=== PATIENT | female | born 1990 ===

== ENCOUNTER 2017-02-16 13:52 | Emergency (ER) | payer BC ==
[2017-02-16 14:03] VITALS: BP 120/71
[2017-02-16] MEDS ORDERED: Rabies Immune Globulin(Human)* 150 UNITS/ML 2 ML VIAL (300 UNITS) ONE (14:33)
[2017-02-16] MEDS ORDERED: Rabies Immune Globulin(HUMAN)* 150 UNIT/ML 10 ML ONE (14:33)
[2017-02-16] MEDS ORDERED: Rabies Immune Globulin(Human)* 150 UNITS/ML 2 ML VIAL (300 UNITS) IM ONE ×2 (14:41→14:46)
[2017-02-16] MEDS ORDERED: Rabies Immune Globulin(HUMAN)* 150 UNIT/ML 10 ML IM ONE (14:46)
[2017-02-16] MEDS ORDERED: Rabies Vaccine, PCEC INJ* 1 ml IM ONE (14:48)
--- NOTE | 2017-02-16 15:02 | UC ---
Bite Injury/Animal HPI - HPI Summary HPI Summary: here dog attacked and killed a rabid racoon, she may have gotten some of the racoon saliva/blood in to wound on her right hand when cleaning up the dog yesterday - History of Current Complaint Chief Complaint: UCBiteInjury Stated Complaint: RABIES VISIT Time Seen by Provider: 02/16/17 14:29 Hx Obtained From: Patient Hx Last Menstrual Period: 01/15/17 ?: No Severity Currently: None Pain Intensity: 0 Pain Scale Used: 0-10 Numeric Onset/Duration: Sudden Onset Type of Bite: Wild Animal - potential blood and saliva exposure Has Animal Been Immunized?: N/A Character: Abrasion/Laceration Aggravating Factor(s): Nothing Alleviating Factor(s): Nothing Associated Signs And Symptoms: Positive: Negative Hx of Bite: Unprovoked Animal Available for Observation: No Animal Control Notified: Yes - Allergies/Home Medications Allergies/Adverse Reactions: Allergies Allergy/AdvReac Type Severity Reaction Status Date / Time Carbamazepine [From Tegretol] Allergy Hives Verified 02/16/17 14:04 Diphenhydramine Allergy Hives Verified 02/16/17 14:04 [From Benadryl] Home Medications: Home Medications Ibuprofen [Ibuprofen 200 MG] 800 mg PO BID PRN 02/16/17 [History Confirmed 02/16] oxyCODONE TAB* [Roxycodone TAB 5 mg*] 30 mg PO QID 02/16/17 [History Confirmed 02/16/17] PMH/Surg Hx/FS Hx/Imm Hx Previously Healthy: Yes - Surgical History Surgical History: Yes Surgery Procedure, Year, and Place: T&A, [place], Gum Surgery - Family History Known Family History: Positive: None Family History: no reported cardiovascular issues in family lineage - Social History Occupation: Employed Full-time Lives: With Family Alcohol Use: Rare Substance Use Type: Marijuana Smoking Status (MU): Current Every Day Smoker Cessation Counseling: Patient Advised to Stop Review of Systems Constitutional: Negative Skin: Other - on right hand 3rd finger pip ---she has a soft scabbed skin avulsion, and an abrasion on thumb Eyes: Negative ENT: Negative Respiratory: Negative Cardiovascular: Negative Gastrointestinal: Negative Genitourinary: Negative Motor: Negative Neurovascular: Negative Musculoskeletal: Negative Neurological: Negative Psychological: Negative All Other Systems Reviewed And Are Negative: Yes Physical Exam Triage Information Reviewed: Yes Appearance: Well-Appearing, No Pain Distress, Well-Nourished Vital Signs: Initial Vital Signs Temp 99.2 F 02/16/17 14:01 Pulse 66 02/16/17 14:01 Resp 16 02/16/17 14:01 BP 120/71 02/16/17 14:01 Pulse Ox 100 02/16/17 14:01 Vital Signs Reviewed: Yes Eye Exam: Normal Eyes: Positive: Conjunctiva Clear ENT Exam: Normal ENT: Positive: Normal ENT inspection, Hearing grossly normal. Negative: Muffled /hoarse voice Dental Exam: Normal Neck exam: Normal Neck: Positive: Supple, Nontender Respiratory Exam: Normal Respiratory: Positive: Chest non-tender, Lungs clear, Normal breath sounds, No respiratory distress, No accessory muscle use Cardiovascular Exam: Normal Cardiovascular: Positive: RRR, No Murmur, Pulses Normal, Brisk Capillary Refill Musculoskeletal Exam: Normal Musculoskeletal: Positive: Strength Intact, ROM Intact, No Edema Neurological Exam: Normal Neurological: Positive: Alert, Muscle Tone Normal Psychological Exam: Normal Skin Exam: Other Skin: Positive: Other - as described Re-Evaluation - Re-Evaluation First Eval Change: Unchanged - areas on right hand as described inflitrated with RIG--- remainder given by RN as well as first Vaccine Bite Injury Course/Dx - Course Course Of Treatment: Follow with health department for remainder of vaccine, soap and water wash for wounds - Differential Dx/Diagnosis Differential Diagnosis/HQI/PQRI: Laceration, Puncture, Rabies Exposure Provider Diagnoses: Rabies Exposure- Discharge - Discharge Plan Condition: Stable Disposition: HOME Patient Education Materials: Rabies Vaccine (By injection), Rabies Immune Globulin (By injection) Referrals: [facility] [Outside] - If Needed Additional Instructions: Follow with [facility] as planned for remainder of the vaccine
== END 2017-02-16 16:20 | disposition home or self-care (01) ==
LOC: UCEAST 13:52
DX: Z20.3 Contact with and (suspected) exposure to rabies (principal); W55.59XA Other contact with raccoon, initial encounter; Y93.89 Activity, other specified; Y92.9 Unspecified place or not applicable; Y99.9 Unspecified external cause status
CPT/HCPCS: 90375; 90471; 90675; 96372; 99211; G0463

== ENCOUNTER 2019-09-16 06:17 | Day surgery (SDC) | payer OTHER ==
[~2019-09-16 06:17] MED LIST: Buffered Lidocaine 1% SYRIN* 1 ML/SYRINGE INTRADERM ONE; Lactated Ringers 1000 ML Bag* 1,000 ML IV SCH
[2019-09-16] MEDS ORDERED: ceFAZolin 2 GM PREMIX in ORs 2 GM/50 ML BAG ONE (06:21)
[2019-09-16] MEDS ORDERED: Ropivacaine 0.2% * 2 MG/ML VIAL ONE (07:16)
[2019-09-16] MEDS ORDERED: Lidocaine 1% w EPI 1:200,000* SDV 30 ML VIAL ONE (07:17)
[2019-09-16] MEDS ORDERED: Dexamethasone IV* 4 MG/ML 1 ML (4 MG) ONE (07:21)
[2019-09-16] MEDS ORDERED: fentaNYL* 50 MCG/ML 2 ML VIAL (100 MCG VIAL) ONE ×3 (07:21→09:23)
[2019-09-16] MEDS ORDERED: Ketorolac INJ* 30 MG/ML 1 ML VIAL ONE (07:21)
[2019-09-16] MEDS ORDERED: Ondansetron INJ* 2 MG/ML VIAL ONE (07:21)
[2019-09-16] MEDS ORDERED: Propofol* 10 MG/ML 20 ML BTL ONE (07:21)
[2019-09-16] MEDS ORDERED: Midazolam* 1 MG/ML 5 ML VIAL (5 MG) ONE (07:22)
[2019-09-16] MEDS ORDERED: Lidocaine 2% PF * 5 ML VIAL ONE (07:32)
[2019-09-16] MEDS ORDERED: Scopolamine 1.5 mg* PATCH TRANSDERM PRN (08:15)
[2019-09-16] MEDS ORDERED: Ondansetron INJ* 2 MG/ML VIAL IV PRN (08:15)
[2019-09-16] MEDS ORDERED: DiMENhydriNATE IV* 50 MG/ML VIAL IV PUSH PRN (08:15)
[2019-09-16] MEDS ORDERED: fentaNYL* 50 MCG/ML 2 ML VIAL (100 MCG VIAL) IV PRN (08:15)
[2019-09-16] MEDS ORDERED: Naloxone* 0.4 MG/ML 1 ML VIAL IV PRN (08:15)
[2019-09-16] MEDS ORDERED: oxyCODONE/Acetamin 5/325 MG* TAB ONE ×2 (09:23→10:07)
[2019-09-16] MEDS: oxyCODONE/Acetamin 5/325 MG* TAB PO PRN ×2 (09:27→10:09)
[2019-09-16] MEDS ORDERED: HYDROcodone/ACETAMIN 5-325 MG* 1 TAB ONE (10:06)
[2019-09-16 10:46] VITALS: BP 124/62
--- NOTE | 2019-09-18 23:09 | OP ---
CC: PCP * DATE OF OPERATION: 09/16/19 - [facility] DATE OF : 88 SURGEON: Antonia Elliott MD BATTER OUT: BLANCO Barajas. An content assistant was needed for the entirety of the case to help with positioning, retraction, and was utilized throughout all portions of the case. ANESTHESIOLOGIST: Dr. Sow. ANESTHESIA: General. PRE-OP DIAGNOSIS: Right knee grade 3 anterior cruciate ligament rupture. POST-OP DIAGNOSIS: Right knee grade 3 anterior cruciate ligament rupture. OPERATIVE PROCEDURE: 1. Right knee ACL reconstruction. 2. Chondroplasty of the patella. 3. Partial lateral meniscectomy. COMPLICATIONS: None. ESTIMATED BLOOD LOSS: Minimal. TOURNIQUET TIME: 20 minutes with 250 mmHg. INDICATIONS: Jenni is a 29-year-old female with status post ACL injury earlier this year. She has failed conservative management and had persistent instability. She has elected to proceed with surgical treatment. Risks and benefits were discussed at length included, but not limited to, bleeding; infection; damage to nerves, vessels, surrounding structures; wound nonhealing; persistent pain; need for further surgery; scarring; stiffness; incomplete relief of symptoms; and risks of anesthesia. DESCRIPTION OF PROCEDURE: The patient was greeted in the preoperative area by the attending surgeon. Correct extremity was marked and consent was confirmed. The patient was brought back to the operative suite where she was placed in supine position on the operating table. She then underwent general anesthesia and LMA intubation after which she was appropriately positioned in the bed. A lateral post was positioned. A unsterile tourniquet was placed high on the proximal thigh. A sandbag was placed to keep the knee at 90 degrees. The right leg was then prepped and draped in usual sterile fashion beginning with chlorhexidine soap, scrub, and alcohol wipe and a final prep with ChloraPrep. After appropriate surgical pause indicating side, site, procedure and administration of antibiotics, the knee was intra-articularly injected with 1% lidocaine with epi. The Esmarch was used to exsanguinate the limb and tourniquet inflated to 250 mmHg. A 15-blade was used to make incision in line with the patellar tendon extending somewhat medially. Soft tissues were carefully dissected to expose the paratenon which was incised for later closure. The patellar tendon was exposed to center, 10 mm was harvested in full thickness grafts. The bone blocks were then harvested using sagittal saw and osteotomes for a size 9 x 23 mm in the patellar block and then 10 x 30 in the tibial block. The graft was then prepared in the back table by the content assistant while the surgeon closed the patellar tendon with 0-Vicryl in interrupted fashion. The tourniquet was deflated. Attention was directed to arthroscopy. A lateral portal was made through the capsule and the scope was brought into joint. There was evidence of grade 3 ACL rupture with some scar tissue to the PCL. There was fat pad that was removed after the anteromedial portal was established using 18-gauge needle for localization. The medial and lateral gutters were intact without any loose debris. The medial compartment was examined and there was grade 0 changes and no meniscal tearing or fraying. Lateral compartment was examined. There were grade 0 changes of the lateral femoral condyle and fissuring, grade 1 changes in the lateral plateau with some partial tearing of the lateral root of the meniscus. This was debrided back using the shaver. The patellofemoral joint was examined and the joint had grade 0 to 1 changes except for a small flap about the medial aspect, which was unstable. The shaver was used to debride this back. Attention was directed to the ACL. The knee was placed in 90 degrees of flexion. The ACL stump fragments were removed using the biters and dona. Lateral wall was prepared in the usual fashion with electrocautery device. A starting awl was then used to myrtle provisional starting hole as a reference point. The scope was changed from the lateral to the medial portal to visualize this to make sure appropriate placement. Then attention was directed to the tibial tunnel. Tib-to-tib guide was set between 50 and 55 degrees. The guidewire was placed in the center of the footprint and over drilled with size 10 mm full-bore reamer. Excess bone was saved for bone grafting and patellar tunnel. Care was placed to prevent fluid egress. The tunnel was then rasped to make sure there are no sharp edges. A shaver was used to remove any loose tissue or debris. Knee was then carefully hyperflexed and a Bates and Nephew straight guide was then placed using the previously marked yard pilot holes as a reference point. The Beath pin was then placed to the center of footprint and drilled through the lateral femoral condyle through the IT band and skin. This was overdrilled with a size 9 mm low -profile reamer to a depth of about 25 mm. The tunnel was found to have a good back wall and appropriately placed and the tunnel was then notched. A #2 Ethibond suture was then placed to the eyelet of Beath pin and passed a a passing stitch through the tunnel. The graft was then brought from the back table and passed under arthroscopic and direct visualization to be well seated in the femoral tunnel. This was secured with 7 x 20 mm Softsilk screw with excellent purchase. The knee was placed in full extension and there was no evidence of impingement anteriorly. The graft was then cycled approximately 15 times to remove any creep or stress from the graft. The scope was then brought back into the joint. The graft was visualized again and found to be no change in positioning. The knee was then placed in about 20 degrees of flexion with tension on the tibial sutures. The tibial tunnel was secured with a 9 x 25 mm Softsilk screw with excellent purchase. The knee was then taken through full range of motion. The Blanca's was assessed and found to be stable. The scope was brought into the joint. The graft was visualized and found to be intact without any changes. Final images were obtained. The wound was copiously irrigated with sterile saline. Any excess bone graft was placed in the patellar defect and oversewn with 0 Vicryl and then the remaining was placed in the tibial tunnel. The paratenon was closed with 2-0 Vicryl in running fashion. The wounds were irrigated again and the was closed in layers with 3-0 Monocryl. Sterile dressings were applied. The wound was superficially and intra-articularly injected with 0.2% ropivacaine. Sterile dressings were applied, a Cryo/Cuff and a hinged knee brace locked in extension. She was awoken from anesthesia and transferred to PACU in stable condition. POSTOPERATIVE PLAN: She will be weightbearing as tolerated, range of motion as tolerated. Start therapy in 3 to 5 days. Discharge on pain medications. DVT prophylaxis was considered, but deferred due to no previous personal or family history. I will see the patient back in 6 to 8 days. She will also receive postoperative antibiotics. [id number]/[facility] #: [id number] [facility]ure
[2019-09-19] MEDS ORDERED: Scopolamine PATCH Remove* 1 NOTE MISC PATCH OFF ONE (08:16)
== END 2019-09-16 10:35 | disposition home or self-care (01) ==
LOC: OREAST 06:17
PROVIDERS: ATTEND Orthopaedic Surgery
DX: S83.511A Sprain of anterior cruciate ligament of right knee, initial encounter (principal); S83.281A Other tear of lateral meniscus, current injury, right knee, initial encounter; F17.210 Nicotine dependence, cigarettes, uncomplicated; X58.XXXA Exposure to other specified factors, initial encounter; Y92.9 Unspecified place or not applicable; Z68.37 Body mass index [BMI] 37.0-37.9, adult; F41.9 Anxiety disorder, unspecified
CPT/HCPCS: 81025; A9270-GY; C1713; J0690; J1100; J1885; J2001; J2250; J2405; J2704; J2795; J3010